=== PATIENT | male | born 1990 | race Caucasian/White ===

== ENCOUNTER 2016-11-21 16:13 | Emergency (ER) | payer OTHER ==
[~2016-11-21] VITALS: Ht 182.9 cm; Wt 125.0 kg
[2016-11-21 16:16] VITALS: BP 151/99; PULSE 67; TEMP 37; O2SAT 99; Ht 182.9 cm; Wt 125.0 kg
[2016-11-21] MEDS ORDERED: PROPARACAINE HCL 0.5% OP SOLN 15 ML BTL OP STA (16:30)
--- NOTE | 2016-11-21 18:17 | EMERGENCY ROOM VISIT NOTE ---
History First contact with patient: 16:26 Chief Complaint: EYE ASSESSMENT Stated Complaint: DIRT IN LEFT EYE History of Present Illness The patient is a 26 year old male who presents to the Emergency Room with complaints of left eye discomfort. 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 He thought he saw a piece of pain in his eye this morning, and tried to flush it out at work. He reports that the pain persisted, and presents for further evaluation. He rates his discomfort a 2 out of 10. He denies any blurred vision or photophobia. Tetanus immunization is up-to-date. The patient reports that he did not complete Worker's Compensation paperwork, and does not intend to claim this as a work-related injury. Review of Systems 10 system review was performed and was negative except for pertinent positives and negatives as indicated in history of present illness Past Medical/Surgical History Medical Problems: (1) No significant medical problems Surgical Problems: (1) History of wisdom tooth extraction Social History Smoking Status: Never Smoker Alcohol Use: occasionally Marital Status: Housing Status: lives with family Occupation Status: employed Current/Historical Medications No Active Prescriptions or Reported Meds Allergies Uncoded Allergies: NKDA (Allergy, Unknown, 08/27/02) Physical Exam Vital Signs Date Time Temp Pulse Resp B/P Pulse Ox O2 Delivery O2 Flow Rate FiO2 11/21/16 16:16 37.0 67 16 151/99 99 Room Air Right Eye Acuity: 20/25 no correction Left Eye Acuity: 20/25 no correction Physical Exam CONSTITUTIONAL: Healthy and well nourished. Alert and oriented X 3 with positive affect. She does not appear in any acute distress. HEENT: Examination of the left eye does not show any you go purulent or bloody drainage, scleral or conjunctival injection. There is no obvious metallic foreign body on the cornea. Pupils equal round and reactive. No discomfort with extraocular movements. NECK: Full active range of motion without discomfort. INTEGUMENTARY: No rash or other significant dermatologic conditions noted. NEUROLOGIC: Cranial nerves II-XII grossly intact. No focal neurologic deficits noted. Medical Decision & Procedures Procedure Slit lamp and fluorescein exam were performed after applying 2 drops of proparacaine in the left eye. The proparacaine complete resolved the patient's discomfort. Close examination with the slit lamp does not show any foreign debris within the lower conjunctival sac or under the upper eyelid with eversion. No corneal foreign body. Negative hyphema. No additional conjunctival injection. Fluorescein exam showed no corneal abrasions or other scleral uptake. At this point, the patient was still having intermittent discomfort after the proparacaine wore off. I suggested performing a Khoa lens irrigation, and the patient agreed. 2 additional drops of Alcaine were instilled into the left eye, then Khoa lens was inserted without difficulty. The eye was irrigated with a liter of normal saline. At this point, repeat slit lamp and fluorescein exam was normal. He did have 2 metallic foreign bodies on the lower eyelid margin. These were removed with a sterile swab soaked with Alcaine. They were easily removed, and were not present on his initial slit lamp exam. I therefore suspect that these were irrigated out with Khoa lens irrigation. I repeated eversion of the upper eyelid and lower eyelid without any additional foreign debris. ED Course Patient history and physical exam were performed. Nurse's notes were reviewed. Visual acuity is normal. Initial slit lamp and fluorescein exam were normal. Khoa lens irrigation was performed. Repeat slit lamp and fluorescein exam showed 2 metallic foreign bodies on the lower eyelid margin. These were successfully removed. Repeat eversion of the upper and lower eyelid showed no additional retained debris. The patient was advised that symptoms should completely quickly resolve. He was provided contact information for ophthalmology if his symptoms are not improving within the next 24 hours. The patient was happy with plan of care, and voiced understanding of all discharge instructions, denying any pain at the conclusion of my exam. Impression Primary Impression: Foreign body of left eye Departure Information Prescriptions No Active Prescriptions or Reported Meds Referrals No Doctor, Assigned (PCP) Patient Instructions My [facility] Problem Qualifiers Primary Impression: Foreign body of left eye Encounter type: initial encounter Qualified Codes: T15.92XA - Foreign body on external eye, part unspecified, left eye, initial encounter
== END 2016-11-21 17:37 | disposition home or self-care (01) ==
LOC: C.EDB 16:14 → C.EDD 17:37
DX: T15.92XA Foreign body on external eye, part unspecified, left eye, initial encounter (principal); X58.XXXA Exposure to other specified factors, initial encounter; Y92.89 Other specified places as the place of occurrence of the external cause